=== PATIENT | male | born 1995 | race Caucasian/White ===

== ENCOUNTER 2017-04-03 22:04 | Emergency (ER) | payer SELFPAY ==
[~2017-04-03] VITALS: Ht 177.8 cm; Wt 52.7 kg
[~2017-04-03 22:04] MED LIST: NOHOMEMEDS
[2017-04-04] MEDS ORDERED: PERCOCET 5/31 TABLET PO (01:40)
[2017-04-04 01:45] VITALS: BP 139/63
== END 2017-04-04 01:51 | disposition home or self-care (01) ==
LOC: EME 22:04
PROC: 0HQ1XZZ Repair Face Skin, External Approach (ICD-10-PCS; principal; 2017-04-03)
DX: S01.81XA Laceration without foreign body of other part of head, initial encounter (principal); S00.83XA Contusion of other part of head, initial encounter; Y04.8XXA Assault by other bodily force, initial encounter; Y92.481 Parking lot as the place of occurrence of the external cause; Y07.9 Unspecified perpetrator of maltreatment and neglect; Z88.0 Allergy status to penicillin
CPT/HCPCS: 70486; 99281; 99284